=== PATIENT | female | born 1980 | race Two or more races ===

== ENCOUNTER 2018-06-30 02:43 | Emergency (ER) | payer BC ==
[~2018-06-30] VITALS: Ht 170.2 cm; Wt 113.9 kg
[~2018-06-30 02:43] MED LIST: KETO10TA2 PO; ORPH100T PO
[2018-06-30] MEDS ORDERED: KETO10TA2 PO (06:26)
== END 2018-06-30 06:32 | disposition home or self-care (01) ==
LOC: ER 02:43
DX: M94.0 Chondrocostal junction syndrome [Tietze] (principal)